=== PATIENT | male | born 1980 | race Caucasian/White ===

== ENCOUNTER 2017-06-15 18:17 | Emergency (ER) | payer OTHER ==
[2017-06-15 18:26] VITALS: BP 161/90
[2017-06-15] MEDS ORDERED: ERYT1OIN6 EACHEYE (18:38)
--- NOTE | 2017-06-15 18:38 | PHYS DOC ---
Adult General Chief Complaint Chief Complaint: EYE PROBLEMS HPI HPI Patient is a 36 year old male who presents with complaint of bilateral eye pain. 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 Patient denies any piece of metal flying into his eye. Patient states that he gradually started getting worsening pain to both eyes with increasing irritation and tearing. Patient denies loss of vision. Patient states that his pains currently 9 out of 10. Patient has not taken any medications to help with symptoms at this time. Patient denies any other complaints. Review of Systems Review of Systems Constitutional: Denies fever or chills [] Eyes: Redness, eye pain, tearing, denies abnormal discharge[] HENT: Denies nasal congestion or sore throat [] Musculoskeletal: Denies back pain or joint pain [] Integument: Denies rash or skin lesions [] Neurologic: Denies headache, focal weakness or sensory changes [] Current Medications Current Medications Current Medications Medications (Trade) Dose Ordered Sig/Jer Start Time Stop Time Status Last Admin Dose Admin Acetaminophen/ Hydrocodone Bitart (Lortab 7.5/325) 1 tab 1X ONCE 06/15/17 18:30 06/15/17 18:31 UNV Erythromycin (Romycin) 0.5 inch 1X ONCE 06/15/17 18:30 06/15/17 18:31 UNV Allergies Allergies Allergies Coded Allergies Type Severity Reaction Last Updated Verified No Known Drug Allergies 06/15/17 No Physical Exam Physical Exam Constitutional: Well developed, well nourished, afebrile, appears in moderate discomfort. [] HENT: Normocephalic, atraumatic, bilateral external ears normal, oropharynx moist, no oral exudates, nose normal. [] Eyes: PERRLA, EOMI, mild scleral injection, increased tear production. [] Extremities: No tenderness, no cyanosis, no clubbing, ROM intact, no edema. [] Neurologic: Alert and oriented X 3, normal motor function, normal sensory function, no focal deficits noted. [] Current Patient Data Vital Signs Vital Signs Date Time Temp Pulse Resp B/P (MAP) Pulse Ox O2 Delivery O2 Flow Rate FiO2 06/15/17 18:26 98.2 60 16 98 Room Air Lab Results None performed EKG EKG Not performed[] Radiology/Procedures Radiology/Procedures Not performed[] Course & Med Decision Making Course & Med Decision Making Pertinent Labs and Imaging studies reviewed. (See chart for details) The patient was treated with erythromycin ophthalmic ointment to provide a soothing barrier to the epithelial surface of the corneas. Patient also given a [place] tablet for treatment of pain. Advised continued treatment with ophthalmic ointment 2-3 times a day until symptoms resolve. Expected resolution should be in the next 2-3 days. Advised follow-up with primary doctor in 3-4 days of symptoms are not improving and return to emergency department for any worsening symptoms. Patient voiced understanding and in agreement with treatment plan. Dragon Disclaimer Dragon Disclaimer This chart was dictated in whole or in part using Voice Recognition software in a busy, high-work load, and often noisy Emergency Department environment. It may contain unintended and wholly unrecognized errors or omissions. Departure Departure: Impression: Primary Impression: Flash burn of both eyes Disposition: 01 HOME, SELF-CARE Condition: STABLE Referrals: PCP,UNKNOWN (PCP) Patient Instructions: Erythromycin eye ointment Additional Instructions: Follow-up he primary doctor in 3-4 days of symptoms are not improving. Return to emergency department for any worsening symptoms. Scripts Erythromycin Base (Erythromycin) 1 Gm Oint...g. 0.5 INCH EACHEYE TID for 3 Days, MISC Prov: WALT CELESTE MD 06/15/17 WALT CELESTE MD Jun 15, 2017 18:38
[2017-06-15] MEDS ORDERED: ERYTHROMYCIN 0.5% OPHTH OINTMENT 1GM TUBE. OU ONE (19:00)
[2017-06-15] MEDS ORDERED: HYDROcodone/APAP 7.5/325MG 1 TAB TABLET PO ONE (19:00)
== END 2017-06-15 19:07 | disposition home or self-care (01) ==
LOC: ER 18:17
DX: T26.42XA Burn of left eye and adnexa, part unspecified, initial encounter (principal); T26.41XA Burn of right eye and adnexa, part unspecified, initial encounter; X08.8XXA Exposure to other specified smoke, fire and flames, initial encounter; Y93.89 Activity, other specified; Y99.8 Other external cause status; Y92.89 Other specified places as the place of occurrence of the external cause
CPT/HCPCS: 99283